=== PATIENT | female | born 1990 | race Caucasian/White ===

== ENCOUNTER 2017-08-02 23:43 | Emergency (ER) | payer SELFPAY ==
[~2017-08-02] VITALS: Ht 152.4 cm; Wt 49.9 kg
[2017-08-03] MEDS ORDERED: CLINDAMYCIN HC300 MG PO (00:21)
== END 2017-08-03 00:58 | disposition home or self-care (01) ==
LOC: ED 23:43
DX: K02.9 Dental caries, unspecified (principal); Z88.0 Allergy status to penicillin

== ENCOUNTER 2024-03-24 16:59 | Emergency (ER) | payer OTHER ==
[~2024-03-24] VITALS: Ht 152.4 cm; Wt 56.7 kg
[~2024-03-24 16:59] MED LIST: CLINDAMYCIN HC300 MG PO
[2024-03-24] MEDS ORDERED: PREDNISONE20 M1 PO (20:33)
[2024-03-24] MEDS ORDERED: methylPREDNISolone sod succ 125 MG VIAL IM ONE (20:35)
== END 2024-03-24 20:37 | disposition home or self-care (01) ==
LOC: ED 16:59
DX: M94.0 Chondrocostal junction syndrome [Tietze] (principal); Z79.899 Other long term (current) drug therapy; Z88.0 Allergy status to penicillin; W18.39XA Other fall on same level, initial encounter; Y93.89 Activity, other specified; Y92.89 Other specified places as the place of occurrence of the external cause; Y99.8 Other external cause status

== ENCOUNTER 2024-09-09 13:52 | Emergency (ER) | payer SELFPAY ==
[~2024-09-09] VITALS: Ht 152.4 cm; Wt 61.2 kg
[~2024-09-09 13:52] MED LIST changes: +PREDNISONE20 M1 PO
[2024-09-09] MEDS ORDERED: SODIUM CHLORIDE 0.9% 1,000 ML IV ONE (14:45)
[2024-09-09] MEDS ORDERED: Ondansetron Hydrochloride 4 MG/2 ML VIAL IV ONE (14:45)
[2024-09-09] MEDS ORDERED: IOHEXOL 300 MG/ML 100 ML VIAL IV ONE (15:00)
[2024-09-09 15:40] LABS: BASO # 0.0 10*3/uL (0.0-0.1); BASO % 0.3 % (0.0-1.0); EOS # 0.1 10*3/uL (0.0-0.4); EOS % 0.8 % (1.0-4.0); MEAN CELL VOLUME 91.0 fl (81.0-99.0); MEAN CORPUSCULAR HGB 30.6 pg (27.0-31.0); MEAN PLATELET VOLUME 9.6 fl (9.6-12.3); MONO # 0.8 10*3/uL (0.1-1.0); MONO % 6.5 % (3.0-9.0); NEUT # 8.2 10*3/uL (2.3-7.9); NEUT % 69.3 % (47.0-73.0); NUCLEATED RED BLOOD CELL 0.0 % (0.0-0.0); NUCLEATED RED BLOOD CELL 0.0 10*3/uL (0.0-0.0); PLATELET COUNT AUTOMATED 453 10*3/uL (130-400); RED CELL DISTRI WIDTH 13.1 % (0-14.5)
[2024-09-09 15:48] LABS: BUN 10 mg/dl (9-23); SGPT/ALT 31 U/L (5-49)
[2024-09-09 16:21] LABS: BILIRUBIN 1+ (Negative); BLOOD Negative (Negative); CLARITY Cloudy (Clear); COLOR Dark Yellow (Yellow); KETONE 1+ (Negative); LEUKO ESTERASE Trace (Negative); NITRITE Negative (Negative); PH 5.5 (4.5-8.0); SPECIFIC GRAVITY >= 1.030 (1.001-1.030); UROBILINOGEN 1.0 E.U./dl (0.0-1.0)
[2024-09-09 16:32] LABS: BACTERIA 1+; MUCOUS 3+
[2024-09-09] MEDS ORDERED: Ciprofloxacin Hydrochloride 500 MG TAB PO ONE (18:45)
[2024-09-09] MEDS ORDERED: CIPRO500 MG PO (18:50)
== END 2024-09-09 19:06 | disposition home or self-care (01) ==
LOC: ED 13:52
PROVIDERS: Nurse Practitioner Family
DX: K51.90 Ulcerative colitis, unspecified, without complications (principal); N39.0 Urinary tract infection, site not specified; R55 Syncope and collapse; Z88.0 Allergy status to penicillin; Z79.899 Other long term (current) drug therapy

== ENCOUNTER 2024-10-22 22:50 | Emergency (ER) | payer SELFPAY ==
[~2024-10-22] VITALS: Ht 152.4 cm; Wt 61.2 kg
[~2024-10-22 22:50] MED LIST changes: +CIPRO500 MG PO
== END 2024-10-22 23:56 | disposition home or self-care (01) ==
LOC: ED 22:50
DX: B34.9 Viral infection, unspecified (principal); Z88.0 Allergy status to penicillin